=== PATIENT | female | born 1985 | race African-American/Black ===

== ENCOUNTER 2017-08-13 14:40 | Emergency (ER) | payer BC ==
[2017-08-13 15:59] LABS: INFLUENZA A PATIENT NEGATIVE (NEGATIVE); INFLUENZA B PATIENT NEGATIVE (NEGATIVE); OBC FLU VALID
[2017-08-13] MEDS ORDERED: IPRATRPIUM/ALBUTEROL 0.5/2.5MG 3 ML NEBU. NEB ×2 (16:00)
== END 2017-08-13 16:29 | disposition home or self-care (01) ==
LOC: ER 16:29
DX: R50.9 Fever, unspecified (principal); M79.1 Myalgia; R05 Cough; R06.02 Shortness of breath; Z79.899 Other long term (current) drug therapy
CPT/HCPCS: 87804; 87804-59; 99284

== ENCOUNTER 2018-06-03 08:06 | Emergency (ER) | payer BC ==
[~2018-06-03] VITALS: Ht 167.6 cm; Wt 81.6 kg
[~2018-06-03 08:06] MED LIST: OSEL75CA PO; PRED50TA PO
[2018-06-03 08:45] VITALS: BP 123/74
[2018-06-03] MEDS ORDERED: AMOX500T PO (09:01)
--- NOTE | 2018-06-03 09:01 | PHYS DOC ---
Past Medical History Past Medical History: No Pertinent History Past Surgical History: No Surgical History Alcohol Use: None Drug Use: None Adult General Chief Complaint Chief Complaint: SORE THROAT HPI HPI Patient is a 33 year old AA female who presents to the emergency department with complaints of a sore throat, fever, dry cough, nasal congestion, fatigue, and swollen lymph nodes for the last 4 days. Patient also reports having chills , she has not been able to measure her temperature at home. She denies any nausea, vomiting, diarrhea, or shortness of breath. Review of Systems Review of Systems Constitutional: Reports fever and chills [] HENT: Reports nasal congestion and sore throat; see history of present illness [ ] Respiratory: Denies wheezing or shortness of breath; reports dry cough GI: Denies nausea, vomiting, or diarrhea [] Integument: Denies rash or skin lesions [] Neurologic: Denies headache, focal weakness or sensory changes [] All other systems were reviewed and found to be within normal limits, except as documented in this note. Allergies Allergies Allergies Coded Allergies Type Severity Reaction Last Updated Verified No Known Drug Allergies 04/07/15 No Physical Exam Physical Exam Constitutional: Well developed, well nourished, no acute distress, ill appearing HENT: Normocephalic, atraumatic, bilateral external ears normal, bilateral TMs are normal, posterior pharynx noted to be erythemic with palatal petechiae and malodorous breath, oropharynx moist, no oral exudates, nose normal. [] Eyes: PERRLA, conjunctiva normal, no discharge. [] Neck: Normal range of motion, no stridor; anterior cervical chain mild lymphadenopathy with tenderness to palpation Cardiovascular:Heart rate regular rhythm, no murmur [] Lungs & Thorax: Bilateral breath sounds clear to auscultation [] Skin: Warm, dry, no erythema, no rash. [] Neurologic: Alert and oriented X 3, normal motor function, normal sensory function, no focal deficits noted. [] Psychologic: Affect normal, judgement normal, mood normal. [] EKG EKG [] Radiology/Procedures Radiology/Procedures [] Course & Med Decision Making Course & Med Decision Making Pertinent Labs and Imaging studies reviewed. (See chart for details) dx: Strep pharyngitis Prescription written for amoxicillin. Patient encouraged alternate Tylenol and ibuprofen as needed for pain/fever. Increase clear fluids. Avoid airway irritants such as smoke, dust, and animal dander, and perfumes. Warm salt water gargles as needed for comfort. Follow-up with your primary care doctor next week. Return to the emergency room if symptoms worsen. Patient verbalized an understanding of home care, medications, follow-up, and return to ED instructions and was in agreement with the plan of care. [] Dragon Disclaimer Dragon Disclaimer This electronic medical record was generated, in whole or in part, using a voice recognition dictation system. Departure Departure Impression: Primary Impression: Strep pharyngitis Disposition: HOME, SELF-CARE Condition: STABLE Referrals: NO PCP (PCP) Patient Instructions: Strep Throat, [id number] Additional Instructions: alternate Tylenol and ibuprofen as needed for pain/fever. Increase clear fluids. Avoid airway irritants such as smoke, dust, and animal dander, and perfumes. Warm salt water gargles as needed for comfort. Follow-up with your primary care doctor next week. Return to the emergency room if symptoms worsen. Scripts Amoxicillin (AMOXICILLIN) 500 Mg Tablet 1 TAB PO BID, #20 TAB 0 Refills Prov: ARMANDO NUNEZ STRETCHING MACHINE OPERATOR 06/03/18 ARMANDO NUNEZ STRETCHING MACHINE OPERATOR Jun 03, 2018 09:01
== END 2018-06-03 09:16 | disposition home or self-care (01) ==
LOC: ER 08:06
DX: J02.0 Streptococcal pharyngitis (principal); B95.5 Unspecified streptococcus as the cause of diseases classified elsewhere; R53.83 Other fatigue; R59.0 Localized enlarged lymph nodes
CPT/HCPCS: 99283